=== PATIENT | female | born 1940 | race Caucasian/White ===

== ENCOUNTER 2018-05-18 12:12 | Outpatient (RCR) | payer MEDICARE ==
[~2018-05-18 12:12] MED LIST: HYDROCODONE PO; HYPERTENTION; [UNRECOGNIZED DRUG - OTHER]
== END 2018-05-20 ==
LOC: OT 12:12
PROVIDERS: ATTEND Orthopaedic Surgery
DX: S43.005A Unspecified dislocation of left shoulder joint, initial encounter (principal); S43.004A Unspecified dislocation of right shoulder joint, initial encounter; M25.612 Stiffness of left shoulder, not elsewhere classified; M25.611 Stiffness of right shoulder, not elsewhere classified; R53.1 Weakness

== ENCOUNTER 2018-06-16 07:56 | Outpatient (RCR) | payer MEDICARE | END 2018-06-17 | LOC: OT 07:56 | PROVIDERS: ATTEND Orthopaedic Surgery | DX: S43.005D Unspecified dislocation of left shoulder joint, subsequent encounter (principal); S43.004D Unspecified dislocation of right shoulder joint, subsequent encounter; M25.612 Stiffness of left shoulder, not elsewhere classified; M25.611 Stiffness of right shoulder, not elsewhere classified; R53.1 Weakness ==

== ENCOUNTER 2018-07-12 12:55 | Outpatient (RCR) | payer MEDICARE | END 2018-07-18 | LOC: OT 12:55 | PROVIDERS: ATTEND Orthopaedic Surgery | DX: S43.005A Unspecified dislocation of left shoulder joint, initial encounter (principal); S43.004A Unspecified dislocation of right shoulder joint, initial encounter; M25.612 Stiffness of left shoulder, not elsewhere classified; M25.611 Stiffness of right shoulder, not elsewhere classified; R53.1 Weakness | CPT/HCPCS: 97139 ==